=== PATIENT | male | born 1975 | race Caucasian/White ===

== ENCOUNTER → 2020-10-17 | Outpatient (CLI) | payer OTHER, BC ==
[~2020-10-17] VITALS: Ht 160 cm; Wt 118.0 kg
[~2020-10-17] MED LIST: ASA81BEC PO; COLACE100 MG PO; FUROSEMIDE 20 M20 MG PO; HUMALOG100 UNIT/1 SUBQ; MIDODRINE HCL 55 M1 PO; RENAL-VITE TAB0.8 MG PO; RENVELA0.8 GM PO; ROSUVASTATIN CA10 MG PO; TOPROL XL25 MG PO; TRESIBA100 UNIT/1 SUBQ; TUMS ULTRA STR470 MG PO; VELPHORO500 MG PO; VITAMIN D325 MC5 PO
--- NOTE | ~2020-10-17 | P ---
[facility] [place] [address] PROCEDURE REPORT Name: GARLAND LEE Room #: REG DELIA Evans.#: [id number] Admission: 10/17/20 Attend Phys: Theron Layton MD Discharge: Date of : 77 Report #: [id number] THIS REPORT FOR: cc: Caleb Fomran John E. DO Couchonnal, Luis F. MD ~ DATE OF SERVICE: 10/17/2020 PREOPERATIVE DIAGNOSIS: Supraventricular tachycardia. 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 PROCEDURE PERFORMED: 1. SVT ablation -- CPT code 37610. 2. EP with left atrial pacing and recording, CPT code 30776. 3. 3D mapping, CPT code 92160. HISTORY: The patient is a 44-year-old with a longstanding history of SVT that is adenosine sensitive. He has had multiple ER visits for this. He is also on dialysis chronically. He is here for SVT ablation. ANESTHESIA: The patient underwent MAC anesthesia with no anesthesia related complications. DESCRIPTION OF PROCEDURE: The patient and his underwent informed consent. We discussed the details of the procedure including the risks, which include but not limited to bleeding, vascular damage, stroke, ND, cardiac perforation, and possible damage to the [place] conduction system requiring pacemaker. He understood these risks and is willing to proceed. The patient was brought to the EP laboratory in fasting and nonsedated state, prepped and draped in a sterile fashion. I obtained access in the right femoral vein x3, placing an 8, 6, 6 and 7-Yoruba short sheath. Under fluoroscopy, a quadripolar catheters were placed at the HRA, His, and RV position and a decapolar catheter was placed easily in the coronary sinus. At baseline, the patient was in sinus rhythm with a sinus cycle length of 730 milliseconds, NM interval 160 milliseconds, QRS duration 90 milliseconds, QT interval 425 milliseconds, AH interval 83 milliseconds, HV interval 52 milliseconds. Atrial burst pacing was performed, and the patient went into SVT with a tachycardia cycle length of 350 milliseconds, septal VA time of 35 milliseconds, activation pattern consistent with typical AVNRT. Ventricular pacing was performed and entrainment demonstrated a VAHV response. In SVT, the patient would have low blood pressure, become hypotensive. This SVT was difficult to terminate with atrial or ventricular burst pacing. He would keep going back into it. Eventually, it would terminate. Next, a single atrial extrastimuli were delivered and at 330 milliseconds at a [address] cycle length, he went back into SVT, a VAHV again was demonstrated. The SVT was also again difficult to [facility] [address] [place] [address] PROCEDURE REPORT Name: GARLAND LEE Room #: NICKI Gray#: [id number] Admission: 10/17/20 Attend Phys: Theron Layton MD Discharge: Date of : 77 Report #: [id number] terminate. Once terminated, I performed ventricular pacing and ventricular pacing showed VA conduction that was both midline and decremental. Again, with ventricular pacing, I could not obtain VA block as he went right into SVT again. Again, I terminated this. 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 A SR0 sheath and a [employer] Ruiz 4 mm ablation catheter was placed into the right atrium. A 3D geometry was created with specific emphasis of the His bundle region and the slow pathway region. The patient underwent a total of 4 ablation lesions. On lesion #2, he had approximately 40 seconds junctionals. There was no evidence of any AV node block. POST ABLATION TESTING: Atrial burst pacing was performed and now AV block was noted at 340 milliseconds. AV [place] ERP was noted at 320 milliseconds at a [address] cycle length. VA block was noted at 310 milliseconds and VA ERP was noted at 270 milliseconds at a [address] cycle length. Aggressive atrial and ventricular pacing maneuvers were performed and no further SVT was induced. Post ablation, he was in sinus rhythm, sinus cycle length of 770 milliseconds, NM interval 180 milliseconds, QRS duration 93 milliseconds, QT interval 400 milliseconds, AH interval 90 milliseconds, HV interval 52 milliseconds. As such, catheters and sheaths were pulled and hemostasis was obtained. The patient awoke neurologically and hemodynamically intact with no complications. CONCLUSION: 1. Successful ablation of typical AV [place] reentry tachycardia. 2. Normal SA [place]ha function. 3. Normal AV lakesha function. 4. Normal His-Purkinje function. 5. No other inducible arrhythmias. By: [id number] Theron Layton MD /nt
[2020-10-17 07:40] VITALS: BP 123/88
[2020-10-17 07:53] LABS: BASOPHILS 1.2 % (0.0-2.0); EOSINOPHILS 1.9 % (0.0-3.0); HEMOGLOBIN 12.8 gm/dL (14.0-18.0); LYMPHOCYTES 15.1 % (24.0-44.0); MCH 30.8 pg (26.0-34.0); MCHC 32.8 g/dL (28.0-37.0); MCV 93.8 fL (80.0-100.0); MONOCYTES 8.7 % (1.0-8.0); PLATELET COUNT 346 thou/uL (150-400); POLYS 73.1 % (36.0-66.0); RBC 4.15 mil/uL (4.50-6.00); RDW 19.3 % (10.5-14.5); WBC 10.9 thou/uL (4.0-11.0)
[2020-10-17 07:57] LABS: CALCIUM 8.1 mg/dL (8.5-10.1); CREATININE 7.8 mg/dL (0.7-1.3); POTASSIUM 5.1 mmol/L (3.5-5.1)
[2020-10-17 08:00] LABS: APTT 24.8 Seconds (24.5-32.8); INR 1.03; PROTIME 11.2 Seconds (10.5-12.1)
[2020-10-17 08:03] LABS: ALBUMIN 3.3 g/dL (3.4-5.0); TOTAL BILIRUBIN 0.6 mg/dL (0.2-1.0); TOTAL PROTEIN 8.9 g/dL (6.4-8.2)
== END | disposition home or self-care (01) ==
LOC: CATH 06:26
PROVIDERS: ATTEND Internal Medicine Cardiovascular Disease
DX: I47.1 Supraventricular tachycardia (principal); I13.0 Hypertensive heart and chronic kidney disease with heart failure and stage 1 through stage 4 chronic kidney disease, or unspecified chronic kidney disease; E11.22 Type 2 diabetes mellitus with diabetic chronic kidney disease; N18.9 Chronic kidney disease, unspecified; I50.9 Heart failure, unspecified; E78.5 Hyperlipidemia, unspecified; E66.9 Obesity, unspecified; Z98.890 Other specified postprocedural states; Z79.899 Other long term (current) drug therapy; Z86.73 Personal history of transient ischemic attack (TIA), and cerebral infarction without residual deficits; Z79.82 Long term (current) use of aspirin; Z99.2 Dependence on renal dialysis
CPT/HCPCS: 62110; 62900; 70005